=== PATIENT | male | born 1950 | race African-American/Black ===

== ENCOUNTER 2017-12-29 20:32 | Inpatient (IN) | payer MEDICARE, MEDICAID ==
[~2017-12-29] VITALS: Ht 175.3 cm; Wt 90.7 kg
[2017-12-29] MEDS ORDERED: NKM (20:33)
--- NOTE | 2017-12-29 20:41 | Emergency Room Report ---
History of Present Illness General Source: Patient, EMS (LUPILLO CHAVEZ M.D.) Present Illness HPI 67-year-old male GABE with witnessed seizure at home Patient not sure what time it happened, states he was on the bed when it did happen last seizure was "years ago", however patient not on any antiseizure medication c.o of head heaviness right now denies urinary incontinence, biting tongue, lips denies pain anywhere else States "tumor removed" left side of head in 1999 (LUPILLO CHAVEZ M.D.) Allergies: Coded Allergies: No Known Allergies (Unverified , 12/29/17) Patient History Past Medical History: seizures Past Surgical History: unable to obtain Pertinent Family History: unable to obtain Social History: Denies: smoking, alcohol use, drug use Immunizations: UTD Reviewed Nursing Documentation: PMH: Agreed, PSxH: Agreed (LUPILLO CHAVEZ M.D.) Review of Systems All Other Systems: negative except mentioned in HPI (LUPILLO CHAVEZ M.D.) Physical Exam Sp02 EP Interpretation: reviewed, normal General Appearance: normal inspection, well appearing, no apparent distress, alert, GCS 15, non-toxic Head: normocephalic, other - ?old craniotomy scar left side of head Eyes: bilateral eye PERRL, bilateral eye EOMI ENT: normal ENT inspection, hearing grossly normal, normal pharynx, no angioedema, normal voice, TMs + canals normal, uvula midline, moist mucus membranes Neck: normal inspection, full range of motion, supple, thyroid normal, no meningismus, no bony tend Respiratory: normal inspection, lungs clear, normal breath sounds, no rhonchi, no respiratory distress, no retraction, no accessory muscle use, no wheezing, speaking full sentences Cardiovascular #1: regular rate, rhythm, no edema, no JVD, normal capillary refill Gastrointestinal: normal inspection, normal bowel sounds, non tender, soft, no mass, no peritonitis, non-distended, no guarding, no hernia, no pulsatile mass Genitourinary: no CVA tenderness Musculoskeletal: normal inspection, back normal, normal range of motion, no calf tenderness, pelvis stable, Autumn's Sign negative Neurologic: normal inspection, alert, oriented x3, 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, 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, motor strength/tone normal, cerebellar normal, normal gait, speech normal Psychiatric: normal inspection, judgement/insight normal, mood/affect normal, no suicidal/homicidal ideation, no delusions Skin: normal inspection, normal color, no rash Lymphatic: normal inspection, no adenopathy (LUPILLO CHAVEZ M.D.) Medical Decision Making Diagnostic Impression: Primary Impression: Seizure ER Course 67YOM with seizure, not on anti-epileptic VSS, afebrile Atraumatic CT head unremarkable on ED review Labs in progress at time of signout Will likely warrant admission Endorsed to Dr Singh at 10pm Adivsed Dr Singh to admit for seizure, load with Keppra if additional seizure (LUPILLO CHAVEZ M.D.) ER Course 67-year-old male, history of seizures many many years ago. Presenting with seizure patient stated that he had a tumor removed year [address] head showing nothing acute Denies any history of alcohol abuse Being admitted to tele Discussed with Dr Baker 11:40 PM, patient had a generalized tonic-clonic seizure, lasting 1 minute. Post ictal. Patient given Ativan and loaded with Keppra (Clark Singh M.D.) EKG Diagnostic Results Rate: normal Rhythm: NSR ST Segments: no acute changes ASA given to the pt in ED: No (LUPILLO CHAVEZ M.D.) Rhythm Strip Diag. Results EP Interpretation: yes Rate: 64 Rhythm: NSR, no PVC's, no ectopy (LUPILLO CHAVEZ M.D.) Status: improved (LUPILLO CHAVEZ M.D.) Disposition: ADMITTED INPATIENT Condition: Serious LUPILLO CHAVEZ M.D. Dec 29, 2017 20:41 Clark Singh M.D. Dec 29, 2017 23:24
[2017-12-29 21:10] LABS: BASOPHILS % (AUTO) 2.3 % (0.0-2.0); EOSINOPHILS % (AUTO) 3.4 % (0.0-3.0); HEMATOCRIT 45.4 % (42.0-52.0); LYMPHOCYTES % (AUTO) 49.6 % (20.0-45.0); MEAN CORPUSCULAR VOLUME 90 FL (80-99); MONOCYTES % (AUTO) 9.2 % (1.0-10.0); NEUTROPHILS % (AUTO) 35.6 % (45.0-75.0); PLATELET COUNT 107 K/UL (150-450); RED BLOOD COUNT 5.04 M/UL (4.70-6.10); WHITE BLOOD COUNT 4.8 K/UL (4.8-10.8)
[2017-12-29] MEDS ORDERED: Acetaminophen 500mg (ES) tab ORAL ONE (21:15)
[2017-12-29 21:30] LABS: ANION GAP 10 mmol/L (5-15); BLOOD UREA NITROGEN 9 mg/dL (7-18); CALCIUM 9.4 MG/DL (8.5-10.1); CARBON DIOXIDE 26 MMOL/L (21-32); CHLORIDE 105 MMOL/L (98-107); CREATININE 1.4 MG/DL (0.55-1.30); POTASSIUM 3.8 MMOL/L (3.5-5.1); SODIUM 141 MMOL/L (136-145)
[2017-12-29 21:35] LABS: ALANINE AMINOTRANSFERASE 34 U/L (12-78); ALBUMIN 3.2 G/DL (3.4-5.0); ALBUMIN/GLOBULIN RATIO 0.7 (1.0-2.7); ALKALINE PHOSPHATASE 73 U/L (46-116); ASPARTATE AMINO TRANSFERASE 31 U/L (15-37); BILIRUBIN,TOTAL 0.3 MG/DL (0.2-1.0)
[2017-12-29 21:59] LABS: CKMB 1.4 NG/ML (0.0-3.6)
[2017-12-29 22:24] VITALS: BP 122/56
[2017-12-29] MEDS ORDERED: LORazepam Inj 2mg/ml 1ml ONE (23:42)
[2017-12-29] MEDS ORDERED: levETIRAcetam 1,500 MG in D5W 95 ML IVPB ONE (23:45)
[2017-12-29] MEDS ORDERED: LORazepam Inj 2mg/ml 1ml IV ONE (23:45)
[2017-12-29] MEDS ORDERED: levETIRAcetam 500mg vial IV ONE (23:48)
[2017-12-30] VITALS (8 sets, daily range): BP systolic 94–138; BP diastolic 44–95
[2017-12-30] MEDS ORDERED: LORazepam Inj 2mg/ml 1ml IV PRN (00:30)
--- NOTE | 2017-12-30 06:54 | History & Physical ---
History and Physical History & Physicial seen and examined. Dictation completed. Lili Baker MD Dec 30, 2017 06:54
--- NOTE | 2017-12-30 06:55 | General Progress Note ---
Assessment/Plan Status: stable Assessment/Plan 1- Break through Sz 2- Non compliance with anti-sz meds 3- Brain tumor-s/p craniotomy 4- Thrombocytopenia Plan: started on Keppra bid neuro consulted Subjective ROS Limited/Unobtainable: No Constitutional: Reports: no symptoms HEENT: Reports: no symptoms Cardiovascular: Reports: no symptoms Respiratory: Reports: no symptoms Allergies: Coded Allergies: No Known Allergies (Unverified , 12/29/17) Objective Last 24 Hour Vital Signs Date Time Temp Pulse Resp B/P (MAP) Pulse Ox O2 Delivery O2 Flow Rate FiO2 12/30/17 04:00 50 12/30/17 04:00 97.6 48 20 119/58 Nasal Cannula 2.0 97.6 12/30/17 01:22 97.3 63 20 113/81 Nasal Cannula 2.0 97.3 12/30/17 01:07 97.5 80 20 105/56 5 Nasal Cannula 2.0 97.5 12/30/17 00:56 97.5 80 20 105/56 5 Nasal Cannula 2.0 97.5 12/30/17 00:06 98.9 89 20 94/44 98 Nasal Cannula 2.0 98.9 12/29/17 22:24 97.8 62 16 122/56 98 Room Air 97.8 12/29/17 22:24 98.0 12/29/17 20:40 71 16 Room Air 12/29/17 20:35 98.0 71 16 153/99 90 Room Air 98.1 Intake and Output 12/29/17 12/30/17 19:00 07:00 Intake Total 110 ml Output Total 0 ml Balance 110 ml Intake IV Total 110 ml Output Urine Total 0 ml # Voids 1 Laboratory Tests 12/29/17 20:30: Sodium Level 141, Potassium Level 3.8, Chloride Level 105, Carbon Dioxide Level 26, Anion Gap 10, Blood Urea Nitrogen 9, Creatinine 1.4H, Estimat Glomerular Filtration Rate > 60, Glucose Level 95, Calcium Level 9.4, Total Bilirubin 0.3, Aspartate Amino Transf (AST/SGOT) 31, Alanine Aminotransferase (ALT/SGPT) 34, Alkaline Phosphatase 73, Total Protein 7.5, Albumin 3.2L, Globulin 4.3, Albumin/ Globulin Ratio 0.7L 12/29/17 20:52: White Blood Count 4.8, Red Blood Count 5.04, Hemoglobin 15.0, Hematocrit 45.4, Mean Corpuscular Volume 90, Mean Corpuscular Hemoglobin 29.8, Mean Corpuscular Hemoglobin Concent 33.1, Red Cell Distribution Width 12.0, Platelet Count 107L, Mean Platelet Volume 12.4H, Neutrophils (%) (Auto) 35.6L, Lymphocytes (%) (Auto ) 49.6H, Monocytes (%) (Auto) 9.2, Eosinophils (%) (Auto) 3.4H, Basophils (%) ( Auto) 2.3H, Creatine Kinase MB 1.4, Troponin I 0.004, Salicylates Level 3.0, Acetaminophen Level < 2L, Phenytoin (Dilantin) Level < 0.4L, Valproic Acid ( Depakene) Level < 3L, Phenobarbital Level < 1.0L, Serum Alcohol < 3 12/29/17 22:15: Urine Opiates Screen Negative, Urine Barbiturates Screen Negative, Phencyclidine (PCP) Screen Negative, Urine Amphetamines Screen Negative, Urine Benzodiazepines Screen Negative, Urine Cocaine Screen Negative, Urine Marijuana (THC) Screen Negative 12/30/17 06:30: Sodium Level [Pending], Potassium Level [Pending], Chloride Level [Pending], Carbon Dioxide Level [Pending], Blood Urea Nitrogen [Pending], Creatinine [ Pending], Estimat Glomerular Filtration Rate [Pending], Glucose Level [Pending] , Calcium Level [Pending], Total Bilirubin [Pending], Aspartate Amino Transf ( AST/SGOT) [Pending], Alanine Aminotransferase (ALT/SGPT) [Pending], Alkaline Phosphatase [Pending], Total Protein [Pending], Albumin [Pending], Globulin [ Pending], White Blood Count [Pending], Red Blood Count [Pending], Hemoglobin [ Pending], Hematocrit [Pending], Mean Corpuscular Volume [Pending], Mean Corpuscular Hemoglobin [Pending], Mean Corpuscular Hemoglobin Concent [Pending] , Red Cell Distribution Width [Pending], Platelet Count [Pending], Mean Platelet Volume [Pending], Neutrophils (%) (Auto) [Pending], Lymphocytes (%) ( Auto) [Pending], Monocytes (%) (Auto) [Pending], Eosinophils (%) (Auto) [Pending ], Basophils (%) (Auto) [Pending], Hemoglobin A1c [Pending], Triglycerides Level [Pending], Cholesterol Level [Pending], LDL Cholesterol [Pending], HDL Cholesterol [Pending], Cholesterol/HDL Ratio [Pending], Thyroid Stimulating Hormone (TSH) [Pending] Height (Feet): 5 Height (Inches): 9.00 Weight (Pounds): 200 General Appearance: no apparent distress EENT: PERRL/EOMI Neck: supple Cardiovascular: normal rate Respiratory/Chest: lungs clear Abdomen: soft Extremities: non-tender 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
[2017-12-30 07:15] LABS: BASOPHILS % (AUTO) 1.1 % (0.0-2.0); EOSINOPHILS % (AUTO) 2.5 % (0.0-3.0); HEMATOCRIT 42.9 % (42.0-52.0); HEMOGLOBIN 14.6 G/DL (14.2-18.0); LYMPHOCYTES % (AUTO) 37.4 % (20.0-45.0); MEAN CORPUSCULAR VOLUME 89 FL (80-99); MONOCYTES % (AUTO) 11.2 % (1.0-10.0); NEUTROPHILS % (AUTO) 47.8 % (45.0-75.0); PLATELET COUNT 108 K/UL (150-450); RED CELL DISTRIBUTION WIDTH 11.7 % (11.6-14.8); WHITE BLOOD COUNT 5.3 K/UL (4.8-10.8)
[2017-12-30 07:27] LABS: CHOLESTEROL 160 MG/DL (< 200); HDL CHOLESTEROL 42 MG/DL (40-60); TRIGLYCERIDES 107 MG/DL (30-150)
[2017-12-30 07:29] LABS: ALANINE AMINOTRANSFERASE 13 U/L (12-78); ALBUMIN 3.1 G/DL (3.4-5.0); ALBUMIN/GLOBULIN RATIO 0.9 (1.0-2.7); ALKALINE PHOSPHATASE 69 U/L (46-116); ANION GAP 8 mmol/L (5-15); ASPARTATE AMINO TRANSFERASE 30 U/L (15-37); BILIRUBIN,TOTAL 0.5 MG/DL (0.2-1.0); BLOOD UREA NITROGEN 10 mg/dL (7-18); CARBON DIOXIDE 26 MMOL/L (21-32); CHLORIDE 107 MMOL/L (98-107); CREATININE 1.1 MG/DL (0.55-1.30); SODIUM 140 MMOL/L (136-145)
[2017-12-30] MEDS ORDERED: Enoxaparin 40mg Inj SUBQ SCH (09:00)
--- NOTE | 2017-12-30 09:54 | Consultation ---
Consult Note Consult Note NEUROLOGY CONSULTATION: Full note dictated #[id number] 67 y/o, RH, BM with PH of benign brain tumor removed surgically in 1999. Since then he has had seizures which he cannot describe but following which he loses consciousness. Was on medicine to prevent seizures in past but it caused side effect and he stopped using it. Was hospitalized on 12/29/17 for breakthrough seizure. ON EXAM: L-FT craniotomy scar. Problems with memory, VSF, language. Right hemiparesis Brisker DTRs on right. CT of brain with left temporal encephalomalacia. IMPRESSION: Single breakthrough seizure in patient with long H/O seizures due to brain pathology who was not taking any antiseizure medicines. REC: Continue Keppra but increase dose to 750 mg q 12 H as patient weighs ~ 90 Kg. Mobilize. Stop smoking. If discharged - follow up in office in 6-8 weeks. Lissette Ayala M.D., M.S.P.LISSETTE DSOUZA Dec 30, 2017 09:54
--- NOTE | 2017-12-30 10:15 | Diagnostic Imaging Report ---
Indications: CT Technique: Spiral acquisitions obtained through the brain. Angled axial and coronal 5 x 5 mm slices were reconstructed. Total dose length product 1418.31 mGycm. CTDI vol(s) 70.38 mGy. Dose reduction achieved using automated exposure control Comparison: None. Findings: There is a left convexity craniotomy/craniectomy defect. There is encephalomalacia of the anterior left temporal lobe. There is dense calcification of the medial left tentorium. No acute intracranial hemorrhage or edema. No mass effect or midline shift. There is mild age-related enlargement of the ventricles and extra-axial CSF spaces and periventricular deep white matter chronic ischemic change Normal mcmullen-white differentiation. Visualized orbits and sinuses are unremarkable. The mastoids are clear. Impression: Postsurgical changes, as described. Left temporal encephalomalacia, presumably related to the prior surgery. Negative for acute intracranial bleed or mass effect Chronic and age-related changes, as described This agrees with the preliminary interpretation provided overnight by [facility] teleradiology service. The CT scanner at [facility] is accredited by the [employer] and the scans are performed using protocols designed to limit radiation exposure to as low as reasonably achievable to attain images of sufficient resolution adequate for diagnostic evaluation.
--- NOTE | 2017-12-30 15:32 | History and Physical Report ---
DATE OF ADMISSION: 12/29/2017 SOURCE OF INFORMATION: The patient and EMR. HISTORY OF PRESENT ILLNESS: The patient is a 67-year-old male with a prior history of brain tumor and excision of the tumor in approximately 1999. The patient reported that he had witnessed epilepsy, active general seizure, when going to sleep. Reportedly, it was witnessed by the family members. The patient was transferred to the [facility] for additional evaluation. At the time of initial evaluation, the patient's vitals reported stable. The official report for the imaging is not available at this time. The patient denies any loss of control of his bowel or bladder. The patient denies any nausea or vomitus. The patient reported that he had not been taking the pill for seizure for the last 3 to 4 years despite being advised by the neurologist for taking them. ALLERGIES: NKDA. SOCIAL HISTORY: The patient is single, has 7 children. Positive for approximately more than 20-pack per year of smoking. MEDICATIONS: Current hospital medications including, but not limited to Keppra and lorazepam 2 mg IV every 5 minutes p.r.n. seizure. PHYSICAL EXAMINATION: VITAL SIGNS: Blood pressure 150/90, temperature 98.2, pulse oximetry 98% on room air, respiratory rate 18-20, pulse rate 65-85, and pulse oximetry 95% on 2 liters of nasal oxygen. GENERAL: Awake, alert, and oriented x3. No gross cranial nerve deficit. HEAD AND NECK: Atraumatic and normocephalic. Positive for prior surgeries of the craniotomy. CHEST: Clear to auscultation. No wheezing. No crackles. HEART: S1 and S2. Regular rate and rhythm. Negative for S3. Negative for S4. MUSCULOSKELETAL: No gross focal motor deficit. No edema. NEUROLOGY: As above. PSYCHIATRIC: Mood and affect is appropriate and normal. LABORATORY DATA: Labs dated 12/29/2017 show WBC 4.8, hemoglobin of 15, and platelets of 107. Sodium 141, potassium 3.8, BUN 9, creatinine 1.4. ASSESSMENT: 1. Acute breakthrough seizure. 2. Noncompliance with the antiepileptic medications. 3. Brain tumor, status post craniotomy in 1999, history of. 4. Renal failure-age indeterminate. 5. Thrombocytopenia. 6. Gastrointestinal and deep venous thrombosis prophylaxis. PLAN OF CARE: Start the patient on Keppra 500 mg p.o. b.i.d. Consult Neurology Dr. Ayala. I discussed the potential complications of not continuing the antiseizure medication with the patient. We will discontinue Lovenox and substitute with the SCDs. Lili Baker M.D. DR: GALO JOB#: [id number] CC:
--- NOTE | 2017-12-30 17:32 | Consultation ---
DATE OF CONSULTATION: 12/30/2017 NEUROLOGY CONSULTATION CONSULTING PHYSICIAN: Ray Ayala M.D. REQUESTING PHYSICIAN: Lili Baker M.D. HISTORY: Mr. Percy Lomeli is a 67-year-old, right-handed, black gentleman, who was diagnosed with a benign brain tumor in the year 1999. He was treated surgically for it and he says that the tumor was completely removed. A few months following that, he developed a seizure disorder. He is unable to describe what happens when he has seizures, but he says that he usually has seizures when he is in the process of going to sleep. He apparently loses consciousness and has abnormal body movements from what he has been told, but he does not know what exactly happens, as he has never tried to find out the exact nature of his events. At one point in time, he was on an antiseizure medicine for this problem, but he stopped taking it because the medicine was causing a lot of side effects and he was feeling quite unwell when he took the medicine. His last seizure was approximately 6 to 7 months ago. On 12/29/2017, he was brought into the [facility] emergency room by paramedics after he was found to have a seizure in his rooming home. At this point in time, he feels relatively well. He is achy all over, but has not noticed any increased weakness on one side or the other, numbness on one side or the other, problems with speech, problems with language, problems with vision, or problems with his memory. PAST MEDICAL HISTORY: Significant for a benign brain tumor that was surgically removed in 1999 and a postoperative seizure disorder. FAMILY HISTORY: Nothing significant. PERSONAL HISTORY: Home: He lives in a rooming home. 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 Habits: He smokes approximately half a pack of cigarettes per day and has been doing so for numerous years. He denies the use of alcohol or illicit drugs. MEDICATIONS: Famotidine. He was given a single dose of lorazepam 2 mg intravenously. He was given Keppra 1500 mg intravenously once and is now on Keppra 500 mg orally q.12 h. PHYSICAL EXAMINATION: GENERAL: He is a well-developed, well-nourished, slightly obese, black gentleman, lying in bed, in no acute distress. VITAL SIGNS: Pulse 64 per minute, blood pressure 137/69 mm Hg, respirations 20 per minute, and temperature 97.8 degrees Fahrenheit. HEAD: Head, normocephalic with left frontotemporal craniotomy scar. EENT: Examination benign. NECK: No neck rigidity was observed. NEUROLOGIC EXAMINATION: MENTAL STATUS EXAMINATION: He was awake and alert. He was oriented to person, place, and time. He was able to recall 3/3 words immediately, but could only remember 2/3 words in 1 minute and 3 minutes even on the second trial. He was able to remember presidents, Trump and Obama spontaneously, but needed hints to remember Loomis Jules. He was unable to remember presidents prior to Loomis Jules. His mathematical skills were relatively good. His visuospatial function was impaired. SPEECH: He had no dysarthria. LANGUAGE: He had a mild anomia for low-frequency words, however, it is unclear as to what his education level is. CRANIAL NERVE EXAMINATION: II: The visual torres were intact on confrontation testing. III, IV & : The external ocular movements were full and the pupils 3 mm in diameter, equal, round, regular, and reactive to light. V: He had normal facial sensations and the temporales, masseters, and pterygoids functioned normally. VII: He had mild right VII central facial paresis. VIII: He was able to hear well bilaterally and had no nystagmus. IX: The palate moved symmetrically on phonation. X: He had no hoarseness of voice. XI: The sternocleidomastoids and trapezii functioned normally. XII: The tongue was in the midline without any fasciculations or atrophy. MOTOR SYSTEM: The tone was normal in all four extremities. Examination of muscle mass revealed no focal wasting. Examination of power revealed G 5/5 power except for G 5-/5 power in the right finger extensors and G 4+/5 power in the right iliopsoas. SENSORY EXAMINATION: He had intact sensations to pinprick, light touch, and graphesthesia. COORDINATION: He performed well on [id number] and [id number] testing. Romberg test could not be performed because even with eyes open when he was made to stand with feet together, he was a unsteady. REFLEXES: 2++ on the right and 2+ on the left at the biceps, triceps, brachioradialis, and knees and 1+ at both ankles. The plantar responses were flexor bilaterally. STANCE: He stood up with contact guard. GAIT: He walked with contact guard. DIAGNOSTIC IMPRESSION: 1. Mr. 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 He has had seizures since then on an intermittent basis and his last seizure was approximately 6 to 7 months ago. Then, on 12/29/2017, he had a breakthrough seizure. He apparently was trying to go to sleep and was then noted to have a seizure and was brought into the [facility] emergency room. At this point in time, he is not taking any medicines to prevent seizures. 2. On neurological examination, at this time, he does have a left frontotemporal craniotomy scar, problems with recent and remote memory, visuospatial dysfunction, and language dysfunction. He also has a mild right hemiparesis with brisker reflexes on the right side compared to the left. 3. The CT scan of the brain without contrast revealed left temporal encephalomalacia. 4. Laboratory data obtained thus far revealed a normal CBC except for low platelet count of 108,000. A relatively normal chemistry panel except for low albumin at 3.1, normal TSH and a negative toxicology screen. 5. 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 RECOMMENDATIONS: 1. Agree with management thus far. 2. Agree with continuing the patient on Keppra, but I shall increase the dose of Keppra to 750 mg q.12 h. as the patient weighs approximately 90 kilos. 3. The patient should be mobilized with the help of physical therapy. 4. The patient was instructed to stop smoking. 5. If discharged, I would like to see the patient in followup in approximately 6 to 8 weeks. Thank you for entrusting me with the care of Mr. Lomeli. I shall follow him with you. Ray Ayala M.D., M.S.P.H. DR: ANGELA JOB#: [id number] CC: [id number]
[2017-12-31] VITALS: BP 142/89
[2017-12-31 04:00] VITALS: BP 133/77
[2017-12-31 07:22] LABS: HEMATOCRIT 42.7 % (42.0-52.0); HEMOGLOBIN 14.5 G/DL (14.2-18.0); MEAN CORPUSCULAR VOLUME 90 FL (80-99); PLATELET COUNT 99 K/UL (150-450); RED BLOOD COUNT 4.76 M/UL (4.70-6.10); RED CELL DISTRIBUTION WIDTH 11.7 % (11.6-14.8); WHITE BLOOD COUNT 5.3 K/UL (4.8-10.8)
[2017-12-31 07:30] LABS: ALANINE AMINOTRANSFERASE 24 U/L (12-78); ALBUMIN/GLOBULIN RATIO 0.8 (1.0-2.7); ALKALINE PHOSPHATASE 64 U/L (46-116); ANION GAP 6 mmol/L (5-15); ASPARTATE AMINO TRANSFERASE 29 U/L (15-37); BILIRUBIN,TOTAL 0.4 MG/DL (0.2-1.0); BLOOD UREA NITROGEN 13 mg/dL (7-18); CALCIUM 9.2 MG/DL (8.5-10.1); CARBON DIOXIDE 26 MMOL/L (21-32); CHLORIDE 108 MMOL/L (98-107); CREATININE 1.1 MG/DL (0.55-1.30); SODIUM 140 MMOL/L (136-145)
[2017-12-31 08:00] VITALS: BP 135/77
--- NOTE | 2017-12-31 10:51 | Neurology Progress Note ---
Interim History Interim History Interim History Mr. Lomeli feels better. He has had no further seizures. He has been to the bathroom a few times and feels steady on his feet when he walks. He still feels achy all over. He denies any new neurologic symptoms. Review of Systems Neuro Review of Systems Benign. Objective Physical Exam Last Vital Signs Date Time Temp Pulse Resp B/P (MAP) Pulse Ox O2 Delivery O2 Flow Rate FiO2 12/31/17 08:00 97.6 52 19 135/77 94 Room Air 97.6 12/30/17 08:04 2.0 Laboratory Tests Test 12/31/17 06:10 White Blood Count 5.3 K/UL (4.8-10.8) Red Blood Count 4.76 M/UL (4.70-6.10) Hemoglobin 14.5 G/DL (14.2-18.0) Hematocrit 42.7 % (42.0-52.0) Mean Corpuscular Volume 90 FL (80-99) Mean Corpuscular Hemoglobin 30.5 PG (27.0-31.0) Mean Corpuscular Hemoglobin Concent 34.0 G/DL (32.0-36.0) Red Cell Distribution Width 11.7 % (11.6-14.8) Platelet Count 99 K/UL (150-450) L Mean Platelet Volume 11.7 FL (6.5-10.1) H Neutrophils (%) (Auto) % (45.0-75.0) Lymphocytes (%) (Auto) % (20.0-45.0) Monocytes (%) (Auto) % (1.0-10.0) Eosinophils (%) (Auto) % (0.0-3.0) Basophils (%) (Auto) % (0.0-2.0) Differential Total Cells Counted 100 Neutrophils % (Manual) 45 % (45-75) Lymphocytes % (Manual) 38 % (20-45) Monocytes % (Manual) 14 % (1-10) H Eosinophils % (Manual) 3 % (0-3) Basophils % (Manual) 0 % (0-2) Band Neutrophils 0 % (0-8) Platelet Estimate Decreased L Platelet Morphology Normal Red Blood Cell Morphology Normal Sodium Level 140 MMOL/L (136-145) Potassium Level 4.0 MMOL/L (3.5-5.1) Chloride Level 108 MMOL/L (98-107) H Carbon Dioxide Level 26 MMOL/L (21-32) Anion Gap 6 mmol/L (5-15) Blood Urea Nitrogen 13 mg/dL (7-18) Creatinine 1.1 MG/DL (0.55-1.30) Estimat Glomerular Filtration Rate > 60 mL/min (>60) Glucose Level 92 MG/DL (74-106) Calcium Level 9.2 MG/DL (8.5-10.1) Total Bilirubin 0.4 MG/DL (0.2-1.0) Aspartate Amino Transf (AST/SGOT) 29 U/L (15-37) Alanine Aminotransferase (ALT/SGPT) 24 U/L (12-78) Alkaline Phosphatase 64 U/L (46-116) Total Protein 7.0 G/DL (6.4-8.2) Albumin 3.0 G/DL (3.4-5.0) L Globulin 4.0 g/dL Albumin/Globulin Ratio 0.8 (1.0-2.7) L Neurologic Exam Objective PHYSICAL EXAMINATION: GENERAL: He is a well-developed, well-nourished, slightly obese, black gentleman, lying in bed, in no acute distress. HEAD: Head, normocephalic with left frontotemporal craniotomy scar. EENT: Examination benign. NECK: No neck rigidity was observed. NEUROLOGIC EXAMINATION: MENTAL STATUS EXAMINATION: He was awake and alert. He was oriented to person, place, and time. He was able to recall 3/3 words immediately, but could only remember 2/3 words in 1 minute and 3 minutes. He was able to remember presidents, Trump and Obama spontaneously, but needed hints to remember Loomis Jules. He was unable to remember presidents prior to Loomis Jules. His mathematical skills were relatively good. His visuospatial function was impaired. SPEECH: He had no dysarthria. LANGUAGE: He had a mild anomia for low-frequency words, however, it is unclear as to what his education level is. CRANIAL NERVE EXAMINATION: II: The visual torres were intact on confrontation testing. III, IV & : The external ocular movements were full and the pupils 3 mm in diameter, equal, round, regular, and reactive to light. V: He had normal facial sensations and the temporales, masseters, and pterygoids functioned normally. VII: He had mild right VII central facial paresis. VIII: He was able to hear well bilaterally and had no nystagmus. IX: The palate moved symmetrically on phonation. X: He had no hoarseness of voice. XI: The sternocleidomastoids and trapezii functioned normally. XII: The tongue was in the midline without any fasciculations or atrophy. MOTOR SYSTEM: The tone was normal in all four extremities. Examination of muscle mass revealed no focal wasting. Examination of power revealed G 5/5 power except for G 5-/5 power in the right finger extensors and G 4+/5 power in the right iliopsoas. SENSORY EXAMINATION: He had intact sensations to pinprick, light touch, and graphesthesia. COORDINATION: He performed well on [id number] and sbzn-co-[id number] testing. Romberg test could not be performed because even with eyes open when he was made to stand with feet together, he was a unsteady. REFLEXES: 2+ on the right and 1++ on the left at the biceps, triceps, brachioradialis, and knees. 1+ at both ankles. The plantar responses were flexor bilaterally. STANCE: He stood up with contact guard. GAIT: He walked with contact guard. Impression/Recommendations Diagnostic Impression 1. Mr. 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 He has had seizures since then on an intermittent basis and his last seizure was approximately 6 to 7 months ago. Then, on 12/29/2017, he had a breakthrough seizure. He apparently was trying to go to sleep and was then noted to have a seizure and was brought into the [facility] emergency room. He was not taking any medicines to prevent seizures. 2. He feels better. He has had no further seizures. He has been to the bathroom a few times and feels steady on his feet when he walks. He still feels achy all over. He denies any new neurologic symptoms. 3. On neurological examination, at this time, he does have a left frontotemporal craniotomy scar, problems with recent and remote memory, visuospatial dysfunction, and language dysfunction. He also has a mild right hemiparesis with brisker reflexes on the right side compared to the left. 4. The CT scan of the brain without contrast revealed left temporal encephalomalacia. 5. Laboratory data obtained thus far revealed a normal CBC except for low platelet count of 108,000. A relatively normal chemistry panel except for low albumin at 3.1, normal TSH and a negative toxicology screen. 6. 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 Recommendations 1. Continue present management. 2. Continue Keppra to 750 mg q.12 h. 3. Mobilize rapidly. 4. The patient was instructed to stop smoking. 5. If discharged, I would like to see the patient in followup in approximately 6 to 8 weeks. Lissette Ayala M.D., M.S.P.LISSETTE DSOUZA Dec 31, 2017 10:51
--- NOTE | 2017-12-31 11:55 | General Progress Note ---
Assessment/Plan Status: stable Assessment/Plan 1. Acute breakthrough seizure. 2. Noncompliance with the antiepileptic medications. 3. Brain tumor, status post craniotomy in 1999, history of. 4. Renal failure-age indeterminate. 5. Thrombocytopenia. 6. Gastrointestinal and deep venous thrombosis prophylaxis. 7. Fabricio cardia- preserved BP Plan: started on Keppra bid Notes from neuro consult reviewed Consult cardiology- Dr kim. Pending echo Subjective ROS Limited/Unobtainable: No Constitutional: Reports: malaise HEENT: Reports: no symptoms Cardiovascular: Reports: no symptoms Respiratory: Reports: no symptoms Allergies: Coded Allergies: No Known Allergies (Unverified , 12/29/17) Objective Last 24 Hour Vital Signs Date Time Temp Pulse Resp B/P (MAP) Pulse Ox O2 Delivery O2 Flow Rate FiO2 12/31/17 08:00 57 12/31/17 08:00 97.6 52 19 135/77 94 Room Air 97.6 12/31/17 04:00 48 12/31/17 04:00 97.5 51 20 133/77 96 Room Air 97.5 12/31/17 00:00 51 12/31/17 00:00 97.7 50 20 142/89 97 Room Air 97.7 12/30/17 21:00 56 12/30/17 20:00 Room Air 12/30/17 20:00 97.9 59 20 138/95 99 97.9 12/30/17 16:00 97.5 54 21 135/69 96 Room Air 97.5 12/30/17 16:00 59 12/30/17 12:00 97.8 53 19 112/70 95 Room Air 97.8 12/30/17 12:00 57 Intake and Output 12/30/17 12/31/17 19:00 07:00 Intake Total 860 ml Output Total 800 ml Balance 860 ml -800 ml Intake Oral 860 ml Output Urine Total 800 ml Laboratory Tests 12/31/17 06:10: White Blood Count 5.3, Red Blood Count 4.76, Hemoglobin 14.5, Hematocrit 42.7, Mean Corpuscular Volume 90, Mean Corpuscular Hemoglobin 30.5, Mean Corpuscular Hemoglobin Concent 34.0, Red Cell Distribution Width 11.7, Platelet Count 99L, Mean Platelet Volume 11.7H, Neutrophils (%) (Auto) , Lymphocytes (%) (Auto) , Monocytes (%) (Auto) , Eosinophils (%) (Auto) , Basophils (%) (Auto) , Differential Total Cells Counted 100, Neutrophils % (Manual) 45, Lymphocytes % ( Manual) 38, Monocytes % (Manual) 14H, Eosinophils % (Manual) 3, Basophils % ( Manual) 0, Band Neutrophils 0, Platelet Estimate DecreasedL, Platelet Morphology Normal, Red Blood Cell Morphology Normal, Sodium Level 140, Potassium Level 4.0, Chloride Level 108H, Carbon Dioxide Level 26, Anion Gap 6, Blood Urea Nitrogen 13, Creatinine 1.1, Estimat Glomerular Filtration Rate > 60 , Glucose Level 92, Calcium Level 9.2, Total Bilirubin 0.4, Aspartate Amino Transf (AST/SGOT) 29, Alanine Aminotransferase (ALT/SGPT) 24, Alkaline Phosphatase 64, Total Protein 7.0, Albumin 3.0L, Globulin 4.0, Albumin/Globulin Ratio 0.8L Height (Feet): 5 Height (Inches): 9.00 Weight (Pounds): 200 General Appearance: no apparent distress EENT: PERRL/EOMI Neck: supple Cardiovascular: normal rate Respiratory/Chest: lungs clear Abdomen: soft Extremities: non-tender 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
[2017-12-31 12:00] VITALS: BP 113/69
[2017-12-31 16:00] VITALS: BP 113/76
--- NOTE | 2017-12-31 19:56 | Consultation ---
Consult Note Consult Note Cardiology for Dr. Whittaker/ Cardiac EP Full note dictated. [id number] MINDI WESTON Dec 31, 2017 19:56
[2017-12-31 20:00] VITALS: BP 122/68
[2018-01-01] VITALS (7 sets, daily range): BP systolic 124–176; BP diastolic 65–97
--- NOTE | 2018-01-01 01:30 | Consultation ---
DATE OF CONSULTATION: 12/31/2016 CARDIOLOGY CONSULTATION This is being done as a coverage for Dr. Whittaker. CONSULTING PHYSICIAN: Kavita Hernández M.D. REQUESTING PHYSICIAN: Lili Baker M.D. REASON FOR CONSULTATION: Bradycardia. HISTORY OF PRESENT ILLNESS: The patient is a 67-year-old man with a history of benign brain tumor resected in 1999 with seizures at that time (old records unavailable). He states that he was on medication for seizures, but stopped on his own as it made him feel unwell. Today at the rooming house where he lives, he was noted to have a seizure and was brought to the emergency room. There, he was hemodynamically stable and was admitted for further treatment. He has been seen by Neurology and started on Keppra. On telemetry, he is noted to have intermittent sinus bradycardia, rates as low as 40 beats per minute as well as an episode of second-degree AV block, Mobitz I at 1945 hours. He denies any history of dizziness, lightheadedness, or syncope. He does report intermittent rapid palpitations. He has no history of coronary artery disease, previous myocardial infarction, stroke, or congestive heart failure. PAST MEDICAL HISTORY: As noted above. MEDICATIONS: Keppra 750 mg p.o. q.12 h., Pepcid 20 mg twice a day, Ativan 2 mg IV p.r.n. for seizures. ALLERGIES: No known drug allergies. SOCIAL HISTORY: The patient smokes about one half pack per day. He denies alcohol or drug use. PHYSICAL EXAMINATION: VITAL SIGNS: Blood pressure is 113/76, pulse 50 regular, respirations 18, and afebrile. GENERAL: An alert, well-developed man, in no acute distress. HEENT: Normocephalic and atraumatic. There is a healed surgical scar on the left temporal area. Pupils are equal, round, and reactive to light. Sclerae anicteric. Oral mucosa is moist. NECK: Supple. There is no jugular venous distention. No carotid bruits. LUNGS: Bilateral scattered expiratory wheezes. HEART: Regular. Bradycardic. S1 and S2 with no murmurs or S3. ABDOMEN: Soft, nontender. No palpable mass. EXTREMITIES: No cyanosis, clubbing, or edema. Bilateral SCDs. Distal lower extremity pulses are decreased 1+ bilaterally. LABORATORY AND DIAGNOSTIC DATA: Hemoglobin 14, white blood count 5300, and platelets 99,000. Potassium 4.0, BUN 13, and creatinine 1.1. Troponin 0.004. Cholesterol 160, LDL 93. EKG shows sinus rhythm, sinus bradycardia, rate of 50 beats per minute, axis 0 degrees, normal intervals, and no ST-segment or T-wave changes. There was one episode of second-degree AV block, which appears to be Mobitz I as the DE following the dropped beat is shortened, this occurred at 1945 hours and is associated with a 2.2 second pause. Echo, preliminary report shows an ejection fraction of 60% to 65%, normal left ventricular wall motion, and systolic function, no significant valve lesions. ASSESSMENT AND RECOMMENDATIONS: The patient is a 67-year-old man with a history of a brain tumor, which was resected and seizures, previously on anticonvulsant medication, who now was admitted with a witnessed seizure. He is noted to have intermittent bradycardia and an episode of what appears to be Mobitz I second-degree Atrioventricular block. However, I feel that this is unlikely to be related to his presentation, which by the history was a typical seizure. I would recommend continuing telemetry monitoring. We would avoid negative chronotropic and dromotropic agents. There is no current indication for permanent pacing in the absence of symptomatic bradycardia. The patient has no evidence for acute coronary syndrome and appears with normal left ventricular function by echocardiogram. Thank you for allowing me to see him in Cardiology consultation. I will be happy to follow him with you and we will make further recommendations based on his clinical course. Kavita Hernández M.D. DR: Carmita JOB#: [id number] CC:
[2018-01-01 08:17] LABS: BASOPHILS % (AUTO) 1.2 % (0.0-2.0); EOSINOPHILS % (AUTO) 2.7 % (0.0-3.0); HEMOGLOBIN 15.3 G/DL (14.2-18.0); LYMPHOCYTES % (AUTO) 34.4 % (20.0-45.0); MEAN CORPUSCULAR VOLUME 90 FL (80-99); MONOCYTES % (AUTO) 11.1 % (1.0-10.0); NEUTROPHILS % (AUTO) 50.6 % (45.0-75.0); PLATELET COUNT 110 K/UL (150-450); RED BLOOD COUNT 5.02 M/UL (4.70-6.10); RED CELL DISTRIBUTION WIDTH 11.9 % (11.6-14.8); WHITE BLOOD COUNT 5.7 K/UL (4.8-10.8)
[2018-01-01 08:40] LABS: ALANINE AMINOTRANSFERASE 30 U/L (12-78); ALBUMIN 3.2 G/DL (3.4-5.0); ALBUMIN/GLOBULIN RATIO 0.8 (1.0-2.7); ALKALINE PHOSPHATASE 66 U/L (46-116); ANION GAP 6 mmol/L (5-15); ASPARTATE AMINO TRANSFERASE 25 U/L (15-37); BILIRUBIN,TOTAL 0.4 MG/DL (0.2-1.0); BLOOD UREA NITROGEN 18 mg/dL (7-18); CALCIUM 9.3 MG/DL (8.5-10.1); CARBON DIOXIDE 27 MMOL/L (21-32); CHLORIDE 106 MMOL/L (98-107); CREATININE 1.1 MG/DL (0.55-1.30); SODIUM 139 MMOL/L (136-145)
--- NOTE | 2018-01-01 11:32 | Cardiology Progress Note ---
Assessment/Plan Problem List: (1) Second degree atrioventricular block (2) Seizure Status: stable, progressing Status Narrative Mr Lomeli was admitted with witnessed seizure. He has a history of brain tumor, treated surgically in 1999. Has been stable since adm. He was noted to have episodes of second degree AV block yesterday during sleep ( 330 am and 1615). He has not had symptoms of dizziness, lightheadedness or syncope as outpt Assessment/Plan Continue keppra per neurology. continue telemetry monitoring. At this point, as pt does not have symptomatic bradycardia, and as the AV block appears to be Mobitz I, no further treatment is needed. Subjective ROS Limited/Unobtainable: No Subjective Cardiology for Dr. Whittaker/ Cardiac EP Mr. Lomeli has no c/o chest pain, dizziness or dyspnea. Has not had further seizures since adm Objective Last 24 Hour Vital Signs Date Time Temp Pulse Resp B/P (MAP) Pulse Ox O2 Delivery O2 Flow Rate FiO2 01/01/18 08:12 98.2 52 20 143/86 98 98.2 01/01/18 08:00 98.2 52 20 143/86 98 Room Air 98.2 01/01/18 08:00 56 01/01/18 04:00 97.0 47 16 132/75 96 Room Air 97.0 01/01/18 04:00 46 01/01/18 00:00 97.0 54 16 124/65 96 Room Air 97.0 01/01/18 00:00 50 12/31/17 20:00 51 12/31/17 20:00 97.9 54 19 122/68 99 97.9 12/31/17 16:00 50 12/31/17 16:00 97.7 53 20 113/76 97 Room Air 97.7 12/31/17 12:00 97.2 56 20 113/69 99 Room Air 97.2 12/31/17 12:00 52 General Appearance: WD/WN, no apparent distress, alert EENT: PERRL/EOMI Neck: non-tender, supple, no JVD Rhythm: NSR Cardiovascular: normal rate, regular rhythm, no gallop/murmur Respiratory/Chest: lungs clear Abdomen: non tender, soft Extremities: no swelling Intake and Output 12/31/17 01/01/18 19:00 07:00 Intake Total 850 ml 300 ml Output Total 1100 ml Balance -250 ml 300 ml Intake Oral 850 ml 300 ml Output Urine Total 1100 ml # Voids 1 Laboratory Tests Test 01/01/18 07:00 White Blood Count 5.7 K/UL (4.8-10.8) Red Blood Count 5.02 M/UL (4.70-6.10) Hemoglobin 15.3 G/DL (14.2-18.0) Hematocrit 45.0 % (42.0-52.0) Mean Corpuscular Volume 90 FL (80-99) Mean Corpuscular Hemoglobin 30.5 PG (27.0-31.0) Mean Corpuscular Hemoglobin Concent 33.9 G/DL (32.0-36.0) Red Cell Distribution Width 11.9 % (11.6-14.8) Platelet Count 110 K/UL (150-450) L Mean Platelet Volume 13.0 FL (6.5-10.1) H Neutrophils (%) (Auto) 50.6 % (45.0-75.0) Lymphocytes (%) (Auto) 34.4 % (20.0-45.0) Monocytes (%) (Auto) 11.1 % (1.0-10.0) H Eosinophils (%) (Auto) 2.7 % (0.0-3.0) Basophils (%) (Auto) 1.2 % (0.0-2.0) Sodium Level 139 MMOL/L (136-145) Potassium Level 4.0 MMOL/L (3.5-5.1) Chloride Level 106 MMOL/L (98-107) Carbon Dioxide Level 27 MMOL/L (21-32) Anion Gap 6 mmol/L (5-15) Blood Urea Nitrogen 18 mg/dL (7-18) Creatinine 1.1 MG/DL (0.55-1.30) Estimat Glomerular Filtration Rate > 60 mL/min (>60) Glucose Level 91 MG/DL (74-106) Calcium Level 9.3 MG/DL (8.5-10.1) Total Bilirubin 0.4 MG/DL (0.2-1.0) Aspartate Amino Transf (AST/SGOT) 25 U/L (15-37) Alanine Aminotransferase (ALT/SGPT) 30 U/L (12-78) Alkaline Phosphatase 66 U/L (46-116) Total Protein 7.3 G/DL (6.4-8.2) Albumin 3.2 G/DL (3.4-5.0) L Globulin 4.1 g/dL Albumin/Globulin Ratio 0.8 (1.0-2.7) L Microbiology Date/Time Source Procedure Growth Status 12/30/17 00:10 Nasal Nares MRSA Culture - Final NO METHICILLIN RESISTANT STAPH AUREUS... Complete 12/30/17 00:10 Rectum VRE Culture - Final NO VANCOMYCIN RESISTANT ENTEROCOCCUS ... Complete MINDI WESTON Jan 01, 2018 11:32
--- NOTE | 2018-01-01 14:49 | Neurology Progress Note ---
Interim History Interim History Interim History Mr. Lomeli feels much better. He has been seizure-free. He has feels steadier on his feet when he walks. The generalized body pain is better. He denies any new neurologic symptoms. He is eager to go home. Review of Systems Neuro Review of Systems Benign. Objective Physical Exam Last Vital Signs Date Time Temp Pulse Resp B/P (MAP) Pulse Ox O2 Delivery O2 Flow Rate FiO2 01/01/18 12:00 98.5 59 20 133/74 100 Room Air 98.5 12/30/17 08:04 2.0 Laboratory Tests Test 01/01/18 07:00 White Blood Count 5.7 K/UL (4.8-10.8) Red Blood Count 5.02 M/UL (4.70-6.10) Hemoglobin 15.3 G/DL (14.2-18.0) Hematocrit 45.0 % (42.0-52.0) Mean Corpuscular Volume 90 FL (80-99) Mean Corpuscular Hemoglobin 30.5 PG (27.0-31.0) Mean Corpuscular Hemoglobin Concent 33.9 G/DL (32.0-36.0) Red Cell Distribution Width 11.9 % (11.6-14.8) Platelet Count 110 K/UL (150-450) L Mean Platelet Volume 13.0 FL (6.5-10.1) H Neutrophils (%) (Auto) 50.6 % (45.0-75.0) Lymphocytes (%) (Auto) 34.4 % (20.0-45.0) Monocytes (%) (Auto) 11.1 % (1.0-10.0) H Eosinophils (%) (Auto) 2.7 % (0.0-3.0) Basophils (%) (Auto) 1.2 % (0.0-2.0) Sodium Level 139 MMOL/L (136-145) Potassium Level 4.0 MMOL/L (3.5-5.1) Chloride Level 106 MMOL/L (98-107) Carbon Dioxide Level 27 MMOL/L (21-32) Anion Gap 6 mmol/L (5-15) Blood Urea Nitrogen 18 mg/dL (7-18) Creatinine 1.1 MG/DL (0.55-1.30) Estimat Glomerular Filtration Rate > 60 mL/min (>60) Glucose Level 91 MG/DL (74-106) Calcium Level 9.3 MG/DL (8.5-10.1) Total Bilirubin 0.4 MG/DL (0.2-1.0) Aspartate Amino Transf (AST/SGOT) 25 U/L (15-37) Alanine Aminotransferase (ALT/SGPT) 30 U/L (12-78) Alkaline Phosphatase 66 U/L (46-116) Total Protein 7.3 G/DL (6.4-8.2) Albumin 3.2 G/DL (3.4-5.0) L Globulin 4.1 g/dL Albumin/Globulin Ratio 0.8 (1.0-2.7) L Neurologic Exam Objective PHYSICAL EXAMINATION: GENERAL: He is a well-developed, well-nourished, slightly obese, black gentleman, lying in bed, in no acute distress. HEAD: Head, normocephalic with left frontotemporal craniotomy scar. EENT: Examination benign. NECK: No neck rigidity was observed. NEUROLOGIC EXAMINATION: MENTAL STATUS EXAMINATION: He was awake and alert. He was oriented to person, place, and time. He was able to recall 3/3 words immediately, but could only remember 2/3 words in 1 minute and 3 minutes. He was able to remember presidents Trump and Obama spontaneously, but needed hints to remember Loomis Jules. He was unable to remember presidents prior to Loomis Jules. His mathematical skills were relatively good. His visuospatial function was impaired. SPEECH: He had no dysarthria. LANGUAGE: He had a mild anomia for low-frequency words, however, it is unclear as to what his education level is. CRANIAL NERVE EXAMINATION: II: The visual torres were intact on confrontation testing. III, IV & : The external ocular movements were full and the pupils 3 mm in diameter, equal, round, regular, and reactive to light. V: He had normal facial sensations and the temporales, masseters, and pterygoids functioned normally. VII: He had mild right VII central facial paresis. VIII: He was able to hear well bilaterally and had no nystagmus. IX: The palate moved symmetrically on phonation. X: He had no hoarseness of voice. XI: The sternocleidomastoids and trapezii functioned normally. XII: The tongue was in the midline without any fasciculations or atrophy. MOTOR SYSTEM: The tone was normal in all four extremities. Examination of muscle mass revealed no focal wasting. Examination of power revealed G 5/5 power except for G 5-/5 power in the right finger extensors and G 4+/5 power in the right iliopsoas. SENSORY EXAMINATION: He had intact sensations to pinprick, light touch, and graphesthesia. COORDINATION: He performed well on [id number] and [id number] testing. Romberg test could not be performed because even with eyes open when he was made to stand with feet together, he was a unsteady. REFLEXES: 2+ on the right and 1++ on the left at the biceps, triceps, brachioradialis, and knees. 1+ at both ankles. The plantar responses were flexor bilaterally. STANCE: He stood up with contact guard. GAIT: He walked with contact guard. Impression/Recommendations Diagnostic Impression 1. Mr. 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 He has had seizures since then on an intermittent basis and his last seizure was approximately 6 to 7 months ago. Then, on 12/29/2017, he had a breakthrough seizure. He apparently was trying to go to sleep and was then noted to have a seizure and was brought into the [facility] emergency room. He was not taking any medicines to prevent seizures. 2. He feels much better. He has had no further seizures. He has walked a few times and feels steady on his feet. The generalized body pain is better. He denies any new neurologic symptoms. 3. On neurological examination, at this time, he does have a left frontotemporal craniotomy scar, problems with recent and remote memory, visuospatial dysfunction, and language dysfunction. He also has a mild right hemiparesis with brisker reflexes on the right side compared to the left. 4. The CT scan of the brain without contrast revealed left temporal encephalomalacia. 5. Laboratory data obtained thus far revealed a normal CBC except for low platelet count of 108,000. A relatively normal chemistry panel except for low albumin at 3.1, normal TSH and a negative toxicology screen. 6. 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 Recommendations 1. Continue present management. 2. Continue Keppra to 750 mg q.12 h. 3. Mobilize rapidly. 4. The patient was instructed to stop smoking. 5. If discharged, I would like to see the patient in followup in approximately 6 to 8 weeks. Lissette Nunez M.D., M.S.P.Davi. LISSETTE NUNEZ Jan 01, 2018 14:49
--- NOTE | 2018-01-01 15:23 | Internal Med Progress Note ---
Subjective Date of Service: Jan 01, 2018 Physician Name LaniJono Attending Physician Lili Baker MD Current Medications Medications (Trade) Dose Ordered Sig/Breezy Route PRN Reason Start Time Stop Time Status Last Admin Dose Admin Famotidine (Pepcid) 20 mg BID ORAL 12/30/17 09:00 01/29/18 08:59 01/01/18 08:49 Levetiracetam (Keppra) 750 mg Q12HR ORAL 12/30/17 21:00 01/02/18 23:55 01/01/18 08:49 Lorazepam (Ativan 2mg/ml 1ml) 2 mg Q5M PRN IV For Seizures 12/30/17 00:30 01/06/18 00:29 Allergies: Coded Allergies: No Known Allergies (Unverified , 12/29/17) ROS Limited/Unobtainable: No Constitutional: Reports: no symptoms HEENT: Reports: no symptoms Cardiovascular: Reports: no symptoms Respiratory: Reports: no symptoms Gastrointestinal/Abdominal: Reports: no symptoms Genitourinary: Reports: no symptoms Neurologic/Psychiatric: Reports: no symptoms Subjective 67 YO M admitted with breakthrough seizure. No new seizure overnight. Cover for Int Med-Dr Baker Objective Last Vital Signs Date Time Temp Pulse Resp B/P (MAP) Pulse Ox O2 Delivery O2 Flow Rate FiO2 01/01/18 12:00 98.5 59 20 133/74 100 Room Air 98.5 12/30/17 08:04 2.0 General Appearance: WD/WN, no apparent distress, alert EENT: PERRL/EOMI, normal ENT inspection, TMs normal Neck: non-tender, normal alignment, supple, normal inspection Cardiovascular: normal peripheral pulses, regular rhythm, no gallop/murmur, no JVD, bradycardia Respiratory/Chest: chest wall non-tender, lungs clear, normal breath sounds, no respiratory distress, no accessory muscle use Abdomen: normal bowel sounds, non tender, soft, no organomegaly, no mass Extremities: normal range of motion, non-tender 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0-45.0) Monocytes (%) (Auto) 11.1 % (1.0-10.0) H Eosinophils (%) (Auto) 2.7 % (0.0-3.0) Basophils (%) (Auto) 1.2 % (0.0-2.0) Sodium Level 139 MMOL/L (136-145) Potassium Level 4.0 MMOL/L (3.5-5.1) Chloride Level 106 MMOL/L (98-107) Carbon Dioxide Level 27 MMOL/L (21-32) Anion Gap 6 mmol/L (5-15) Blood Urea Nitrogen 18 mg/dL (7-18) Creatinine 1.1 MG/DL (0.55-1.30) Estimat Glomerular Filtration Rate > 60 mL/min (>60) Glucose Level 91 MG/DL (74-106) Calcium Level 9.3 MG/DL (8.5-10.1) Total Bilirubin 0.4 MG/DL (0.2-1.0) Aspartate Amino Transf (AST/SGOT) 25 U/L (15-37) Alanine Aminotransferase (ALT/SGPT) 30 U/L (12-78) Alkaline Phosphatase 66 U/L (46-116) Total Protein 7.3 G/DL (6.4-8.2) Albumin 3.2 G/DL (3.4-5.0) L Globulin 4.1 g/dL Albumin/Globulin Ratio 0.8 (1.0-2.7) L Microbiology Date/Time Source Procedure Growth Status 12/30/17 00:10 Nasal Nares MRSA Culture - Final NO METHICILLIN RESISTANT STAPH AUREUS... Complete 12/30/17 00:10 Rectum VRE Culture - Final NO VANCOMYCIN RESISTANT ENTEROCOCCUS ... Complete Intake and Output 12/31/17 01/01/18 19:00 07:00 Intake Total 850 ml 300 ml Output Total 1100 ml Balance -250 ml 300 ml Intake Oral 850 ml 300 ml Output Urine Total 1100 ml # Voids 1 Assessment/Plan Problem List: (1) Bradycardia Assessment & Plan: 2nd deg AV block-see cardiology note. (2) Renal failure (3) Brain tumor Assessment & Plan: Benign; S/P resection (4) Seizure Assessment & Plan: Noncompliance with antiseizure medication. See neurology note. Continue Moris per neurology (5) Second degree atrioventricular block Status: progressing JONO IQBAL Jan 01, 2018 15:23
[2018-01-02] VITALS: BP 139/75
[2018-01-02 04:00] VITALS: BP 130/81
[2018-01-02 08:00] VITALS: BP 141/87
[2018-01-02 08:54] LABS: BASOPHILS % (AUTO) 1.5 % (0.0-2.0); EOSINOPHILS % (AUTO) 1.9 % (0.0-3.0); HEMATOCRIT 46.5 % (42.0-52.0); HEMOGLOBIN 15.8 G/DL (14.2-18.0); LYMPHOCYTES % (AUTO) 34.3 % (20.0-45.0); MEAN CORPUSCULAR VOLUME 91 FL (80-99); MONOCYTES % (AUTO) 8.2 % (1.0-10.0); NEUTROPHILS % (AUTO) 54.2 % (45.0-75.0); PLATELET COUNT 124 K/UL (150-450); RED BLOOD COUNT 5.13 M/UL (4.70-6.10); RED CELL DISTRIBUTION WIDTH 11.7 % (11.6-14.8); WHITE BLOOD COUNT 6.3 K/UL (4.8-10.8)
[2018-01-02 09:15] LABS: ALANINE AMINOTRANSFERASE 33 U/L (12-78); ALBUMIN 3.4 G/DL (3.4-5.0); ALBUMIN/GLOBULIN RATIO 0.8 (1.0-2.7); ALKALINE PHOSPHATASE 71 U/L (46-116); ANION GAP 5 mmol/L (5-15); ASPARTATE AMINO TRANSFERASE 30 U/L (15-37); BILIRUBIN,TOTAL 0.3 MG/DL (0.2-1.0); BLOOD UREA NITROGEN 19 mg/dL (7-18); CALCIUM 9.5 MG/DL (8.5-10.1); CARBON DIOXIDE 28 MMOL/L (21-32); CHLORIDE 106 MMOL/L (98-107); CREATININE 1.1 MG/DL (0.55-1.30); SODIUM 139 MMOL/L (136-145)
--- NOTE | 2018-01-02 11:42 | Cardiology Progress Note ---
Assessment/Plan Problem List: (1) Second degree atrioventricular block (2) Seizure Status: stable, progressing Status Narrative Mr Lomeli was admitted with witnessed seizure. He has a history of brain tumor, treated surgically in 1999. Has been stable since adm. He was noted to have episodes of second degree AV block on admission, likely Mobitz I. No further episodes noted on telemetry over past 24 hrs. He has sinus chandan, to 50s. He c/o dizziness today - ? orthostatic Assessment/Plan Continue keppra per neurology. Will check orthostatic VS today. Rhythm stable on telemetry dc plan per primary team. Subjective ROS Limited/Unobtainable: No Subjective Cardiology for Dr. Whittaker/ Cardiac EP Mr. Lomeli reports mild dizziness w/ standing earlier today. Events: no seizures overnight. Objective Last 24 Hour Vital Signs Date Time Temp Pulse Resp B/P (MAP) Pulse Ox O2 Delivery O2 Flow Rate FiO2 01/02/18 08:00 97.2 56 18 141/87 98 Room Air 97.2 58 01/02/18 08:00 64 01/02/18 04:00 97.3 56 20 130/81 99 Room Air 97.3 01/02/18 04:00 55 01/02/18 00:00 97.0 57 22 139/75 96 Room Air 97.0 01/02/18 00:00 60 01/01/18 20:00 97.7 62 20 129/79 97 Room Air 97.7 01/01/18 20:00 65 01/01/18 16:00 60 01/01/18 16:00 97.9 56 20 136/85 99 Room Air 97.9 01/01/18 12:00 98.5 59 20 133/74 100 Room Air 98.5 01/01/18 12:00 58 General Appearance: WD/WN, no apparent distress, alert EENT: PERRL/EOMI Neck: non-tender, supple, no JVD Rhythm: NSR Cardiovascular: normal rate, regular rhythm, no gallop/murmur Respiratory/Chest: lungs clear Abdomen: non tender, soft Extremities: no swelling Neurologic: alert, oriented x 3 Intake and Output 01/01/18 01/02/18 19:00 07:00 Intake Total 765 ml 100 ml Output Total 300 ml 0 ml Balance 465 ml 100 ml Intake Oral 765 ml 100 ml Output Urine Total 300 ml 0 ml # Voids 3 Laboratory Tests Test 01/02/18 08:15 White Blood Count 6.3 K/UL (4.8-10.8) Red Blood Count 5.13 M/UL (4.70-6.10) Hemoglobin 15.8 G/DL (14.2-18.0) Hematocrit 46.5 % (42.0-52.0) Mean Corpuscular Volume 91 FL (80-99) Mean Corpuscular Hemoglobin 30.8 PG (27.0-31.0) Mean Corpuscular Hemoglobin Concent 34.0 G/DL (32.0-36.0) Red Cell Distribution Width 11.7 % (11.6-14.8) Platelet Count 124 K/UL (150-450) L Mean Platelet Volume 12.5 FL (6.5-10.1) H Neutrophils (%) (Auto) 54.2 % (45.0-75.0) Lymphocytes (%) (Auto) 34.3 % (20.0-45.0) Monocytes (%) (Auto) 8.2 % (1.0-10.0) Eosinophils (%) (Auto) 1.9 % (0.0-3.0) Basophils (%) (Auto) 1.5 % (0.0-2.0) Sodium Level 139 MMOL/L (136-145) Potassium Level 4.0 MMOL/L (3.5-5.1) Chloride Level 106 MMOL/L (98-107) Carbon Dioxide Level 28 MMOL/L (21-32) Anion Gap 5 mmol/L (5-15) Blood Urea Nitrogen 19 mg/dL (7-18) H Creatinine 1.1 MG/DL (0.55-1.30) Estimat Glomerular Filtration Rate > 60 mL/min (>60) Glucose Level 118 MG/DL (74-106) H Calcium Level 9.5 MG/DL (8.5-10.1) Total Bilirubin 0.3 MG/DL (0.2-1.0) Aspartate Amino Transf (AST/SGOT) 30 U/L (15-37) Alanine Aminotransferase (ALT/SGPT) 33 U/L (12-78) Alkaline Phosphatase 71 U/L (46-116) Total Protein 7.8 G/DL (6.4-8.2) Albumin 3.4 G/DL (3.4-5.0) Globulin 4.4 g/dL Albumin/Globulin Ratio 0.8 (1.0-2.7) MINDI RODRIGUEZ Jan 02, 2018 11:42
--- NOTE | 2018-01-02 11:47 | Neurology Progress Note ---
Interim History Interim History Interim History Mr. Lomeli continues to feel much better. He has been seizure-free. He feels steadier on his feet when he walks. The generalized body pain is better. He denies any new neurologic symptoms. He has had no significant gait problems. Review of Systems Neuro Review of Systems Benign. Objective Physical Exam Last Vital Signs Date Time Temp Pulse Resp B/P (MAP) Pulse Ox O2 Delivery O2 Flow Rate FiO2 01/02/18 08:00 97.2 56 18 141/87 98 Room Air 97.2 58 12/30/17 08:04 2.0 Laboratory Tests Test 01/02/18 08:15 White Blood Count 6.3 K/UL (4.8-10.8) Red Blood Count 5.13 M/UL (4.70-6.10) Hemoglobin 15.8 G/DL (14.2-18.0) Hematocrit 46.5 % (42.0-52.0) Mean Corpuscular Volume 91 FL (80-99) Mean Corpuscular Hemoglobin 30.8 PG (27.0-31.0) Mean Corpuscular Hemoglobin Concent 34.0 G/DL (32.0-36.0) Red Cell Distribution Width 11.7 % (11.6-14.8) Platelet Count 124 K/UL (150-450) L Mean Platelet Volume 12.5 FL (6.5-10.1) H Neutrophils (%) (Auto) 54.2 % (45.0-75.0) Lymphocytes (%) (Auto) 34.3 % (20.0-45.0) Monocytes (%) (Auto) 8.2 % (1.0-10.0) Eosinophils (%) (Auto) 1.9 % (0.0-3.0) Basophils (%) (Auto) 1.5 % (0.0-2.0) Sodium Level 139 MMOL/L (136-145) Potassium Level 4.0 MMOL/L (3.5-5.1) Chloride Level 106 MMOL/L (98-107) Carbon Dioxide Level 28 MMOL/L (21-32) Anion Gap 5 mmol/L (5-15) Blood Urea Nitrogen 19 mg/dL (7-18) H Creatinine 1.1 MG/DL (0.55-1.30) Estimat Glomerular Filtration Rate > 60 mL/min (>60) Glucose Level 118 MG/DL (74-106) H Calcium Level 9.5 MG/DL (8.5-10.1) Total Bilirubin 0.3 MG/DL (0.2-1.0) Aspartate Amino Transf (AST/SGOT) 30 U/L (15-37) Alanine Aminotransferase (ALT/SGPT) 33 U/L (12-78) Alkaline Phosphatase 71 U/L (46-116) Total Protein 7.8 G/DL (6.4-8.2) Albumin 3.4 G/DL (3.4-5.0) Globulin 4.4 g/dL Albumin/Globulin Ratio 0.8 (1.0-2.7) L Neurologic Exam Objective PHYSICAL EXAMINATION: GENERAL: He is a well-developed, well-nourished, slightly obese, black gentleman, lying in bed, in no acute distress. HEAD: Normocephalic with left frontotemporal craniotomy scar. EENT: Examination benign. NECK: No neck rigidity was observed. NEUROLOGIC EXAMINATION: MENTAL STATUS EXAMINATION: He was awake and alert. He was oriented to person, place, and time. He was able to recall 3/3 words immediately, and could remember them in 1 minute and 3 minutes. He was able to remember presidents Trump and Obama spontaneously, but needed hints to remember Loomis Jules. He was unable to remember presidents prior to Loomis Jules. His mathematical skills were relatively good. His visuospatial function was impaired. SPEECH: He had no dysarthria. LANGUAGE: He had a mild anomia for low-frequency words, however, it is unclear as to what his education level is. CRANIAL NERVE EXAMINATION: II: The visual torres were intact on confrontation testing. III, IV & : The external ocular movements were full and the pupils 3 mm in diameter, equal, round, regular, and reactive to light. V: He had normal facial sensations and the temporales, masseters, and pterygoids functioned normally. VII: He had mild right VII central facial paresis. VIII: He was able to hear well bilaterally and had no nystagmus. IX: The palate moved symmetrically on phonation. X: He had no hoarseness of voice. XI: The sternocleidomastoids and trapezii functioned normally. XII: The tongue was in the midline without any fasciculations or atrophy. MOTOR SYSTEM: The tone was normal in all four extremities. Examination of muscle mass revealed no focal wasting. Examination of power revealed G 5/5 power except for G 5-/5 power in the right finger extensors and G 4+/5 power in the right iliopsoas. SENSORY EXAMINATION: He had intact sensations to pinprick, light touch, and graphesthesia. COORDINATION: He performed well on [id number] and [id number] testing. Romberg test could not be performed because even with eyes open when he was made to stand with feet together, he was a unsteady. REFLEXES: 2+ on the right and 1++ on the left at the biceps, triceps, brachioradialis, and knees. 1+ at both ankles. The plantar responses were flexor bilaterally. STANCE: He stood up with contact guard. GAIT: He walked well with contact guard. Impression/Recommendations Diagnostic Impression 1. Mr. 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 He has had seizures since then on an intermittent basis and his last seizure was approximately 6 to 7 months ago. Then, on 12/29/2017, he had a breakthrough seizure. He apparently was trying to go to sleep and was then noted to have a seizure and was brought into the [facility] emergency room. He was not taking any medicines to prevent seizures. 2. He continues to feel much better. He has had no further seizures. He feels steady on his feet when he walks. The generalized body pain is better. He denies any new neurologic symptoms. 3. On neurological examination, at this time, he does have a left frontotemporal craniotomy scar, mild problems with memory, visuospatial dysfunction, and language dysfunction. He also has a mild right hemiparesis with brisker reflexes on the right side compared to the left. 4. The CT scan of the brain without contrast revealed left temporal encephalomalacia. 5. Laboratory data obtained thus far revealed a normal CBC except for low platelet count of 108,000. A relatively normal chemistry panel except for low albumin at 3.1, normal TSH and a negative toxicology screen. 6. 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 Recommendations 1. Continue present management. 2. Continue Keppra to 750 mg q.12 h. 3. Mobilize rapidly. 4. The patient was instructed to stop smoking. 5. If discharged, I would like to see the patient in followup in approximately 6 to 8 weeks. Lissette Nunez M.D., M.S.P.H. LISSETTE NUNEZ Jan 02, 2018 11:47
[2018-01-02 11:50] VITALS: BP 150/83
--- NOTE | 2018-01-02 14:28 | Internal Med Progress Note ---
Subjective Date of Service: Jan 02, 2018 Physician Name IqbalWayne Attending Physician Lili Baker MD Current Medications Medications (Trade) Dose Ordered Sig/Breezy Route PRN Reason Start Time Stop Time Status Last Admin Dose Admin Famotidine (Pepcid) 20 mg BID ORAL 12/30/17 09:00 01/29/18 08:59 01/02/18 08:37 Levetiracetam (Keppra) 750 mg Q12HR ORAL 12/30/17 21:00 01/02/18 23:55 01/02/18 08:38 Lorazepam (Ativan 2mg/ml 1ml) 2 mg Q5M PRN IV For Seizures 12/30/17 00:30 01/06/18 00:29 Allergies: Coded Allergies: No Known Allergies (Unverified , 12/29/17) ROS Limited/Unobtainable: No Constitutional: Reports: no symptoms HEENT: Reports: no symptoms Cardiovascular: Reports: no symptoms Respiratory: Reports: no symptoms Gastrointestinal/Abdominal: Reports: no symptoms Genitourinary: Reports: no symptoms Neurologic/Psychiatric: Reports: no symptoms Subjective 67 YO M admitted with breakthrough seizure. No new seizure overnight. Cover for Int Med-Dr Baker Objective Last Vital Signs Date Time Temp Pulse Resp B/P (MAP) Pulse Ox O2 Delivery O2 Flow Rate FiO2 01/02/18 12:00 55 01/02/18 11:50 97.0 18 150/83 100 Room Air 97.0 12/30/17 08:04 2.0 Laboratory Tests Test 01/02/18 08:15 White Blood Count 6.3 K/UL (4.8-10.8) Red Blood Count 5.13 M/UL (4.70-6.10) Hemoglobin 15.8 G/DL (14.2-18.0) Hematocrit 46.5 % (42.0-52.0) Mean Corpuscular Volume 91 FL (80-99) Mean Corpuscular Hemoglobin 30.8 PG (27.0-31.0) Mean Corpuscular Hemoglobin Concent 34.0 G/DL (32.0-36.0) Red Cell Distribution Width 11.7 % (11.6-14.8) Platelet Count 124 K/UL (150-450) L Mean Platelet Volume 12.5 FL (6.5-10.1) H Neutrophils (%) (Auto) 54.2 % (45.0-75.0) Lymphocytes (%) (Auto) 34.3 % (20.0-45.0) Monocytes (%) (Auto) 8.2 % (1.0-10.0) Eosinophils (%) (Auto) 1.9 % (0.0-3.0) Basophils (%) (Auto) 1.5 % (0.0-2.0) Sodium Level 139 MMOL/L (136-145) Potassium Level 4.0 MMOL/L (3.5-5.1) Chloride Level 106 MMOL/L (98-107) Carbon Dioxide Level 28 MMOL/L (21-32) Anion Gap 5 mmol/L (5-15) Blood Urea Nitrogen 19 mg/dL (7-18) H Creatinine 1.1 MG/DL (0.55-1.30) Estimat Glomerular Filtration Rate > 60 mL/min (>60) Glucose Level 118 MG/DL (74-106) H Calcium Level 9.5 MG/DL (8.5-10.1) Total Bilirubin 0.3 MG/DL (0.2-1.0) Aspartate Amino Transf (AST/SGOT) 30 U/L (15-37) Alanine Aminotransferase (ALT/SGPT) 33 U/L (12-78) Alkaline Phosphatase 71 U/L (46-116) Total Protein 7.8 G/DL (6.4-8.2) Albumin 3.4 G/DL (3.4-5.0) Globulin 4.4 g/dL Albumin/Globulin Ratio 0.8 (1.0-2.7) L Intake and Output 01/01/18 01/02/18 19:00 07:00 Intake Total 765 ml 100 ml Output Total 300 ml 0 ml Balance 465 ml 100 ml Intake Oral 765 ml 100 ml Output Urine Total 300 ml 0 ml # Voids 3 Objective General Appearance: WD/WN, no apparent distress, alert EENT: PERRL/EOMI, normal ENT inspection, TMs normal Neck: non-tender, normal alignment, supple, normal inspection Cardiovascular: normal peripheral pulses, regular rhythm, no gallop/murmur, no JVD, bradycardia Respiratory/Chest: chest wall non-tender, lungs clear, normal breath sounds, no respiratory distress, no accessory muscle use Abdomen: normal bowel sounds, non tender, soft, no organomegaly, no mass Extremities: normal range of motion, non-tender 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 (2) Renal failure (3) Brain tumor Assessment & Plan: Benign; S/P resection (4) Seizure Assessment & Plan: Noncompliance with antiseizure medication. See neurology note. Continue Keppra 750 mg BID per neurology (5) Second degree atrioventricular block WAYNE IQBAL Jan 02, 2018 14:28
--- NOTE | 2018-01-02 14:58 | Cardiology Report ---
APPROVED REPORT EXAM: Two-dimensional and M-mode echocardiogram with Doppler and color Doppler. INDICATION Bradycardia M-Mode DIMENSIONS IVSd1.6 (0.7-1.1cm)Left Atrium (MM)3.6 (1.6-4.0cm) LVDd3.9 (3.5-5.6cm)Aortic Root2.6 (2.0-3.7cm) PWd1.5 (0.7-1.1cm)Aortic Cusp Exc.1.9 (1.5-2.0cm) LVDs1.6 (2.5-4.0cm) PWs2.2 cm Normal left ventricular chamber size, systolic function and wall motion. Left ventricular ejection fraction estimated to be 60-65%. Mild left ventricular hypertrophy. Anterior Echo-free space, may be due to pericardial fat or effusion. All other cardiac chamber sizes are within normal limits. Focal aortic valve sclerosis with adequate cusp excursion. Mildly thickened mitral valve leaflets with normal excursion. Mild mitral annulus and aortic root calcification. Normal pulmonic valve structure. Normal tricuspid valve structure. IVC is normal in size with physiological collapse. A color flow and spectral Doppler study was performed and revealed: No aortic insufficiency. No mitral regurgitation. Mitral diastolic velocities suggest mild left ventricular diastolic dysfunction (Grade I). Trace tricuspid regurgitation. Tricuspid systolic velocities suggests peak right ventricular systolic pressure of 7 mmHg. Trace pulmonic regurgitation present.
--- NOTE | 2018-01-02 15:38 | Cardiology Report ---
APPROVED REPORT EKG Measurement Heart [id number] Normal sinus rhythm Low voltage QRS Cannot rule out Anterior infarct, age undetermined Abnormal ECG
[2018-01-02 16:00] VITALS: BP 135/78
--- NOTE | 2018-01-02 16:27 | Cardiology Report ---
APPROVED REPORT EKG Measurement Heart [id number] Sinus bradycardia Otherwise normal ECG
[2018-01-02 20:00] VITALS: BP 146/91
[2018-01-03] VITALS: BP 139/79
[2018-01-03 04:00] VITALS: BP 146/99
[2018-01-03 08:00] VITALS: BP 145/87
[2018-01-03 08:35] LABS: ANION GAP 5 mmol/L (5-15); BLOOD UREA NITROGEN 15 mg/dL (7-18); CALCIUM 9.7 MG/DL (8.5-10.1); CARBON DIOXIDE 25 MMOL/L (21-32); CHLORIDE 105 MMOL/L (98-107); CREATININE 0.9 MG/DL (0.55-1.30); POTASSIUM 5.7 MMOL/L (3.5-5.1); SODIUM 135 MMOL/L (136-145)
[2018-01-03 08:37] LABS: HEMATOCRIT 51.8 % (42.0-52.0); HEMOGLOBIN 17.1 G/DL (14.2-18.0); MEAN CORPUSCULAR VOLUME 91 FL (80-99); PLATELET COUNT 67 K/UL (150-450); RED BLOOD COUNT 5.67 M/UL (4.70-6.10); WHITE BLOOD COUNT 6.3 K/UL (4.8-10.8)
--- NOTE | 2018-01-03 09:22 | Neurology Progress Note ---
Interim History Interim History Interim History Mr. Lomeli feels better. He has had a fe brief episodes of dizziness lasting a few seconds at a time when he changes his position. He says he has had the problems in the past too. He has been seizure-free. He feels steadier on his feet when he walks. The generalized body pain is better. He denies any new neurologic symptoms. He has had no significant gait problems. Review of Systems Neuro Review of Systems Benign. Objective Physical Exam Last Vital Signs Date Time Temp Pulse Resp B/P (MAP) Pulse Ox O2 Delivery O2 Flow Rate FiO2 01/03/18 05:24 57 56 52 01/03/18 04:00 97.0 20 146/99 100 Room Air 97.0 12/30/17 08:04 2.0 Laboratory Tests Test 01/03/18 07:25 White Blood Count 6.3 K/UL (4.8-10.8) Red Blood Count 5.67 M/UL (4.70-6.10) Hemoglobin 17.1 G/DL (14.2-18.0) Hematocrit 51.8 % (42.0-52.0) Mean Corpuscular Volume 91 FL (80-99) Mean Corpuscular Hemoglobin 30.1 PG (27.0-31.0) Mean Corpuscular Hemoglobin Concent 32.9 G/DL (32.0-36.0) Red Cell Distribution Width 12.0 % (11.6-14.8) Platelet Count 67 K/UL (150-450) L Mean Platelet Volume 11.6 FL (6.5-10.1) H Neutrophils (%) (Auto) % (45.0-75.0) Lymphocytes (%) (Auto) % (20.0-45.0) Monocytes (%) (Auto) % (1.0-10.0) Eosinophils (%) (Auto) % (0.0-3.0) Basophils (%) (Auto) % (0.0-2.0) Neutrophils % (Manual) Pending Lymphocytes % (Manual) Pending Platelet Estimate Pending Platelet Morphology Pending Sodium Level 135 MMOL/L (136-145) L Potassium Level 5.7 MMOL/L (3.5-5.1) H Chloride Level 105 MMOL/L (98-107) Carbon Dioxide Level 25 MMOL/L (21-32) Anion Gap 5 mmol/L (5-15) Blood Urea Nitrogen 15 mg/dL (7-18) Creatinine 0.9 MG/DL (0.55-1.30) Estimat Glomerular Filtration Rate > 60 mL/min (>60) Glucose Level 103 MG/DL (74-106) Calcium Level 9.7 MG/DL (8.5-10.1) Neurologic Exam Objective PHYSICAL EXAMINATION: GENERAL: He is a well-developed, well-nourished, slightly obese, black gentleman, lying in bed, in no acute distress. HEAD: Normocephalic with left frontotemporal craniotomy scar. EENT: Examination benign. NECK: No neck rigidity was observed. NEUROLOGIC EXAMINATION: MENTAL STATUS EXAMINATION: He was awake and alert. He was oriented to person, place, and time. He was able to recall 3/3 words immediately, and could remember them in 1 minute and 3 minutes. He was able to remember presidents Trump and Obama spontaneously, but needed hints to remember Loomis Jules. He was unable to remember presidents prior to Loomis Jules. His mathematical skills were relatively good. His visuospatial function was impaired. SPEECH: He had no dysarthria. LANGUAGE: He had a mild anomia for low-frequency words, however, it is unclear as to what his education level is. CRANIAL NERVE EXAMINATION: II: The visual torres were intact on confrontation testing. III, IV & : The external ocular movements were full and the pupils 3 mm in diameter, equal, round, regular, and reactive to light. V: He had normal facial sensations and the temporales, masseters, and pterygoids functioned normally. VII: He had mild right VII central facial paresis. VIII: He was able to hear well bilaterally and had no nystagmus. IX: The palate moved symmetrically on phonation. X: He had no hoarseness of voice. XI: The sternocleidomastoids and trapezii functioned normally. XII: The tongue was in the midline without any fasciculations or atrophy. MOTOR SYSTEM: The tone was normal in all four extremities. Examination of muscle mass revealed no focal wasting. Examination of power revealed G 5/5 power except for G 5-/5 power in the right finger extensors and G 4+/5 power in the right iliopsoas. SENSORY EXAMINATION: He had intact sensations to pinprick, light touch, and graphesthesia. COORDINATION: He performed well on [id number]-[id number] and pcvl-mm-eyqm testing. Romberg test could not be performed because even with eyes open when he was made to stand with feet together, he was a unsteady. REFLEXES: 2+ on the right and 1++ on the left at the biceps, triceps, brachioradialis, and knees. 1+ at both ankles. The plantar responses were flexor bilaterally. STANCE: He stood up with contact guard. GAIT: He walked well with contact guard. Impression/Recommendations Diagnostic Impression 1. Mr. 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 He has had seizures since then on an intermittent basis and his last seizure was approximately 6 to 7 months ago. Then, on 12/29/2017, he had a breakthrough seizure. He apparently was trying to go to sleep and was then noted to have a seizure and was brought into the [facility] emergency room. He was not taking any medicines to prevent seizures. 2. He continues to feel much better. He has had no further seizures. He feels steady on his feet when he walks. The generalized body pain is better. He has had a few brief episodes of dizziness lasting a few seconds at a time when he changes his position. He says he has had the problems in the past too. He denies any other new neurologic symptoms. 3. On neurological examination, at this time, he does have a left frontotemporal craniotomy scar, mild problems with memory, visuospatial dysfunction, and language dysfunction. He also has a mild right hemiparesis with brisker reflexes on the right side compared to the left. 4. The CT scan of the brain without contrast revealed left temporal encephalomalacia. 5. Laboratory data obtained thus far revealed a normal CBC except for low platelet count of 108,000. A relatively normal chemistry panel except for low albumin at 3.1, normal TSH and a negative toxicology screen. 6. 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 7. The dizzy episodes most probably represent benign positional vertigo. Recommendations 1. Continue present management. 2. Continue Keppra to 750 mg q.12 h. 3. Mobilize rapidly. 4. The patient was instructed to stop smoking. 5. If discharged, I would like to see the patient in followup in approximately 6 to 8 weeks. Lissette Nunez M.D., M.S.P.H. LISSETTE NUNEZ Jan 03, 2018 09:22
--- NOTE | 2018-01-03 09:55 | General Progress Note ---
Assessment/Plan Status: stable Assessment/Plan 1. Acute breakthrough seizure. 2. Noncompliance with the antiepileptic medications. 3. Brain tumor, status post craniotomy in 1999, history of. 4. Renal failure-age indeterminate. 5. Thrombocytopenia. 6. Gastrointestinal and deep venous thrombosis prophylaxis. 7. Fabricio cardia- preserved BP Plan: started on Keppra bid Notes from neuro consult reviewed Out patient followup to recheck PLT Ok to DC today with [facility] Subjective ROS Limited/Unobtainable: No Constitutional: Reports: no symptoms HEENT: Reports: no symptoms Cardiovascular: Reports: no symptoms Allergies: Coded Allergies: No Known Allergies (Unverified , 12/29/17) Objective Last 24 Hour Vital Signs Date Time Temp Pulse Resp B/P (MAP) Pulse Ox O2 Delivery O2 Flow Rate FiO2 01/03/18 05:24 57 56 52 01/03/18 04:00 97.0 57 20 146/99 100 Room Air 97.0 01/03/18 04:00 48 01/03/18 00:00 97.8 61 21 139/79 99 Room Air 97.8 01/03/18 00:00 61 01/02/18 20:00 97.0 64 20 146/91 98 Room Air 97.0 01/02/18 20:00 61 01/02/18 16:00 97.7 65 18 135/78 100 Room Air 97.7 58 01/02/18 16:00 56 01/02/18 12:00 55 01/02/18 11:50 97.0 59 18 150/83 100 Room Air 97.0 58 Intake and Output 01/02/18 01/03/18 19:00 07:00 Intake Total 600 ml Balance 600 ml Intake Oral 600 ml # Voids 3 2 # Bowel Movements 1 Laboratory Tests 01/03/18 07:25: White Blood Count 6.3, Red Blood Count 5.67, Hemoglobin 17.1, Hematocrit 51.8, Mean Corpuscular Volume 91, Mean Corpuscular Hemoglobin 30.1, Mean Corpuscular Hemoglobin Concent 32.9, Red Cell Distribution Width 12.0, Platelet Count 67L, Mean Platelet Volume 11.6H, Neutrophils (%) (Auto) , Lymphocytes (%) (Auto) , Monocytes (%) (Auto) , Eosinophils (%) (Auto) , Basophils (%) (Auto) , Neutrophils % (Manual) [Pending], Lymphocytes % (Manual) [Pending], Platelet Estimate [Pending], Platelet Morphology [Pending], Sodium Level 135L, Potassium Level 5.7H, Chloride Level 105, Carbon Dioxide Level 25, Anion Gap 5, Blood Urea Nitrogen 15, Creatinine 0.9, Estimat Glomerular Filtration Rate > 60, Glucose Level 103, Calcium Level 9.7 Height (Feet): 5 Height (Inches): 9.00 Weight (Pounds): 200 General Appearance: no apparent distress EENT: PERRL/EOMI Neck: supple Cardiovascular: normal rate Respiratory/Chest: lungs clear Abdomen: soft Extremities: non-tender Neurologic: full stack developer II-XII grossly normal Lili Baker MD Jan 03, 2018 09:55
[2018-01-03 12:00] VITALS: BP 132/92
[2018-01-03] MEDS ORDERED: KEPPRA XR750 MG ORAL ×2 (14:49→14:50)
--- NOTE | 2018-01-04 12:28 | Discharge Summary ---
Discharge Summary Hospital Course Date of Admission Dec 29, 2017 at 22:36 Date of Discharge Jan 03, 2018 at 15:30 Admitting Diagnosis SEIZURE HPI Percy Lomeli is a 67 year old male who was admitted on Dec 29, 2017 at 22: 36 for Seizure Hospital Course dc summary #[id number] Discharge Condition Upon Discharge: stable Discharge Disposition Patient was discharged to Home with Home Health(06) Discharge Diagnoses: Discharge Instructions Discharge Instructions Special Instructions I have been assigned to complete a D/C Summary on this account. I was not involved in the patient management Carly Meier NP ([place]) Jan 04, 2018 12:28
--- NOTE | 2018-01-05 03:15 | Discharge Summary 2 SIG ---
DATE OF ADMISSION: 12/29/2017 DATE OF DISCHARGE: 01/03/2018 REASON FOR ADMISSION: 67-year-old male with history of seizure disorder and brain tumor , status post excision in 1999, was brought in by paramedics secondary to witnessed seizure episode at home. The patient was not on any antiseizure medication. He denied urinary incontinence, biting tongue, pain. Workup in the emergency department revealed stable vital signs. Urine tox screen was negative. Elevated creatinine . Platelet count -107,000. CT of the head revealed no acute intracranial pathology, but revealed left temporal encephalomalacia presumably related to prior surgery. ADMITTING DIAGNOSES: 1. Acute breakthrough seizure episode. 2. Noncompliance with antiepileptic medication. 3. Thrombocytopenia. 4. Brain tumor, status post craniotomy in 1999. 5. Renal failure, age undetermined HOSPITAL COURSE: The patient was admitted to telemetry floor. Neurology and Cardiology consults were requested. The patient was initially noted to have second-degree AV block likely Mobitz type I. Echocardiogram revealed preserved ejection fraction of 60% to 65%. Venous duplex of bilateral lower extremities was negative. Blood pressure remained stable. The patient was bradycardic in 50s, intermittent dizziness, Orthostatic vital signs revealed no evidence of orthostatic changes. According to golf cart assembler, no further episodes of AV block was noted on the telemetry over the last 24 hours. Rhythm was stable on telemetry. Neurology closely followed. Per Neurology, the patient had a single acute breakthrough seizure episode in the setting of chronic seizure disorder secondary to the left temporal brain pathology. The patient was started on Keppra. Seizure precautions were maintained. Neurology closely followed. No further episodes of seizures. Reinforced compliance with medication at home. Platelet count was monitored, trended down. Due to thrombocytopenia, heparin was stopped. The patient was started on SCD for mechanical prophylaxis of DVT. GI prophylaxis provided. Creatinine down to normal. The patient was counseled on smoking cessation. According to neurologist, dizziness likely benign positional vertigo since no orthostatic changes were found. Neurologist recommended to mobilize the patient using the physical and occupational therapy. Per neurologist, episodes of dizziness likely represent benign positional vertigo. Maintain fall precautions and follow up with neurologist as outpatient. The patient was counseled on smoking cessation. FINAL DIAGNOSES: 1. Acute breakthrough seizure episode. 2. 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 3. Noncompliance with antiepileptic medication. 4. Brain tumor history with status post craniotomy in 1999. 5. Renal failure, resolved. 6. Second atrioventricular block likely Mobitz type 1, resolved. 7. Thrombocytopenia. 8. Active smoker. 9. Likely benign positional vertigo DISCHARGE INSTRUCTIONS: The patient was discharged home with home health services. Patient to follow up with the primary care provider next week to check platelet count. The patient to follow up with neurologist in 6 to 8 weeks for further management of seizure disorder. Lili Baker M.D. I have been assigned to dictate discharge summary on this account and I was not involved in the patient's management. Carly ChuSt. Lawrence Psychiatric CenterMesfin N.PSoha DR: SURJIT JOB#: [id number] CC: TYSHAWN
--- NOTE | 2018-01-05 13:03 | Diagnostic Imaging Report ---
APPROVED REPORT CPT Code: 52664 Present Symptoms Comments: R/O DVT BILATERAL: Imaging reveals a patent deep venous system bilaterally. There is no evidence of thrombus within the femoral, popliteal or tibial segments. The greater saphenous veins are also within normal limits. Doppler indicates normal spontaneous flow within these segments.
== END 2018-01-03 15:30 | disposition home health service (06) | DRG 101 ==
LOC: EDBD 20:32 → EMR 22:33 → 2E 22:36 → EDBEDREQ 23:52 → 2E 01-02 07:24
DX: G40.909 Epilepsy, unspecified, not intractable, without status epilepticus (principal); D69.6 Thrombocytopenia, unspecified; N19 Unspecified kidney failure; I44.1 Atrioventricular block, second degree; G81.91 Hemiplegia, unspecified affecting right dominant side; Z86.011 Personal history of benign neoplasm of the brain; Z91.14 Patient's other noncompliance with medication regimen; Z98.890 Other specified postprocedural states; F17.200 Nicotine dependence, unspecified, uncomplicated; R00.1 Bradycardia, unspecified; H81.10 Benign paroxysmal vertigo, unspecified ear
CPT/HCPCS: 36415; 70450; 80048; 80053; 80061; 80164; 80184; 80185; 80299; 80307; 80329; 82553; 83036; 84443; 84484; 85007; 85025; 87081; 93005; 93306; 93970; 99285